=== PATIENT | male | born 1980 | race Two or more races ===

== ENCOUNTER 2020-04-19 20:57 | Inpatient (IN) | payer OTHER ==
[~2020-04-19] VITALS: Ht 160 cm; Wt 72.1 kg
[2020-04-19] MEDS ORDERED: CEFTRIAXONE 1,000 MG ONE (21:20)
[2020-04-19] MEDS ORDERED: CEFTRIAXONE PMX 1GM/50ML 50 ML IVPB ONE (21:30)
[2020-04-19] MEDS ORDERED: AZITHROMYCIN 500 MG in SODIUM CHLORIDE 0.9% 250 ML IVPB ONE (21:30)
[2020-04-19] MEDS ORDERED: SODIUM CHLORIDE 0.9% 1,000ML IVBOLUS ONE (21:30)
[2020-04-19] MEDS ORDERED: SODIUM CHLORIDE FLUSH 10ML SYR IVF ONE (21:30)
--- NOTE | 2020-04-19 21:47 | NUR ---
PT HERE FOR SOB, COUGH AND CHILLS SINCE March. PT PT HAS TESTED POSITIVE FOR COVID A WEEK AGO MIKEL. PT PLACED ON METALLOGRAPHER AND O2. VS STABLE AT THIS TIME. WILL CONTINUE TO MONITOR PT.
[2020-04-19 22:03] LABS: BASOPHILS % (AUTO) 0 % (0-1); EOSINOPHILS # (AUTO) 0.13 x10^3/uL (0-0.4); EOSINOPHILS % (AUTO) 2 % (1-7); LYMPHOCYTES # (AUTO) 0.66 x10^3/uL (1-3.4); LYMPHOCYTES % (AUTO) 10 % (22-44); MD NO; MEAN CORPUSCULAR HEMOGLOBIN 30.7 pg (27.5-34.5); MEAN CORPUSCULAR HGB CONC 33.8 g/dL (33.2-36.2); MEAN CORPUSCULAR VOLUME 90.8 fL (81-97); MEAN PLATELET VOLUME 7.7 fL (7.4-10.4); MONOCYTES % (AUTO) 6 % (2-9); NEUTROPHILS # (AUTO) 5.69 x10^3/uL (1.8-6.8); NEUTROPHILS % (AUTO) 83 % (42-75); PLATELET COUNT 528 x10^3/uL (130-400); RED BLOOD COUNT 4.51 x10^6/uL (4.38-5.82); RED CELL DISTRIBUTION WIDTH 14.5 % (9.4-14.8)
[2020-04-19 22:07] LABS: ALANINE AMINOTRANSFERASE 436 U/L (12-78); ALBUMIN 2.6 g/dL (3.4-5.0); ANION GAP 10 mmol/L (5-15); CALCIUM 8.3 mg/dL (8.5-10.1); CHLORIDE 103 mmol/L (98-107); CREATININE 1.04 mg/dL (0.7-1.3)
--- NOTE | 2020-04-19 22:10 | NUR ---
CT ROOM WILL BE READY AT 2300. WAITING FOR COVID CLEAN.
[2020-04-19 22:11] LABS: ALKALINE PHOSPHATASE 88 U/L (45-117); BILIRUBIN,TOTAL 1.1 mg/dL (0.2-1.0); TOTAL PROTEIN 7.8 g/dL (6.4-8.2); TROPONIN I < 0.015 ng/mL (0.000-0.045)
[2020-04-19] MEDS ORDERED: PHARMACY MAY ADJ FOR RENAL FX MC PRN (23:00)
[2020-04-19] MEDS ORDERED: SODIUM CHLORIDE 0.9% 1,000 ML IV SCH (23:05)
--- NOTE | 2020-04-19 23:14 | NUR ---
REPORT TO ARNIE ADAN
[2020-04-19] MEDS ORDERED: OMNIPAQUE 350 MG/ML, 100ML BOTTLE ONE (23:26)
[2020-04-19] MEDS ORDERED: HYDROcodone/APAP 5/325 TABLET PO PRN (23:30)
[2020-04-19] MEDS ORDERED: ONDANSETRON 2MG/ML, 2ML IVPush PRN (23:30)
[2020-04-19] MEDS ORDERED: ALBUTEROL HFA 90 MCG/SPRAY INH PRN (23:30)
[2020-04-19 23:43] VITALS: BP 134/56
[2020-04-20 02:42] VITALS: BP 116/82
[2020-04-20] MEDS: AZITHROMYCIN 500 MG in SODIUM CHLORIDE 0.9% 250 ML IV SCH (06:23)
[2020-04-20 06:32] LABS: BASOPHILS # (AUTO) 0.02 x10^3/uL (0-0.1); BASOPHILS % (AUTO) 0 % (0-1); EOSINOPHILS # (AUTO) 0.15 x10^3/uL (0-0.4); EOSINOPHILS % (AUTO) 3 % (1-7); LYMPHOCYTES # (AUTO) 0.65 x10^3/uL (1-3.4); LYMPHOCYTES % (AUTO) 14 % (22-44); MD NO; MEAN CORPUSCULAR HEMOGLOBIN 30.1 pg (27.5-34.5); MEAN CORPUSCULAR HGB CONC 33.1 g/dL (33.2-36.2); MEAN PLATELET VOLUME 7.4 fL (7.4-10.4); MONOCYTES # (AUTO) 0.34 x10^3/uL (0.2-0.8); MONOCYTES % (AUTO) 7 % (2-9); NEUTROPHILS # (AUTO) 3.64 x10^3/uL (1.8-6.8); NEUTROPHILS % (AUTO) 76 % (42-75); PLATELET COUNT 487 x10^3/uL (130-400); RED BLOOD COUNT 4.18 x10^6/uL (4.38-5.82); RED CELL DISTRIBUTION WIDTH 13.9 % (9.4-14.8)
[2020-04-20 06:38] LABS: ALANINE AMINOTRANSFERASE 351 U/L (12-78); ALBUMIN 2.3 g/dL (3.4-5.0); ANION GAP 7 mmol/L (5-15); CALCIUM 8.2 mg/dL (8.5-10.1); CHLORIDE 106 mmol/L (98-107); CREATININE 0.92 mg/dL (0.7-1.3)
[2020-04-20 06:42] LABS: D-DIMER 1.01 ug/mlFEU (0.00-0.52); INTERNATIONAL NORMALIZED RATIO 1.22 (0.93-1.1)
[2020-04-20 06:56] LABS: ALKALINE PHOSPHATASE 74 U/L (45-117); BILIRUBIN,TOTAL 0.8 mg/dL (0.2-1.0); CREATINE KINASE, TOTAL 94 U/L (39-308); TOTAL PROTEIN 7.1 g/dL (6.4-8.2)
[2020-04-20 08:58] VITALS: BP 116/81
[2020-04-20] MEDS ORDERED: ASCORBIC ACID 500 MG TABLET PO SCH (09:00)
[2020-04-20] MEDS ORDERED: DOXYCYCLINE 100 MG in DEXTROSE 5% 250 ML IV SCH (09:00)
[2020-04-20] MEDS: ZINC SULFATE 220 MG CAPSULE PO SCH (10:57)
[2020-04-20] MEDS: GUAIFENESIN ER 600 MG TABLET PO SCH ×2 (10:57→20:12)
[2020-04-20] MEDS: CEFTRIAXONE PMX 1GM/50ML 50 ML IVPB SCH (10:57)
[2020-04-20] MEDS: CHOLECALCIFEROL 400 UNITS TABLET PO SCH (10:57)
[2020-04-20] MEDS: ENOXAPARIN 40 MG/0.4 ML SQ SCH (10:58)
[2020-04-20 12:53] VITALS: BP 111/79
[2020-04-20] MEDS: ASCORBIC ACID 500 MG TABLET PO SCH ×2 (17:43→20:12)
[2020-04-20 20:06] VITALS: BP 117/69
[2020-04-20] MEDS: ACETAMINOPHEN 325 MG TABLET PO PRN (20:14)
[2020-04-21 02:15] VITALS: BP 118/86
[2020-04-21 05:49] LABS: BASOPHILS # (AUTO) 0.02 x10^3/uL (0-0.1); BASOPHILS % (AUTO) 0 % (0-1); EOSINOPHILS % (AUTO) 4 % (1-7); LYMPHOCYTES # (AUTO) 0.68 x10^3/uL (1-3.4); LYMPHOCYTES % (AUTO) 13 % (22-44); MD NO; MEAN CORPUSCULAR HEMOGLOBIN 30.4 pg (27.5-34.5); MEAN CORPUSCULAR HGB CONC 33.2 g/dL (33.2-36.2); MEAN CORPUSCULAR VOLUME 91.6 fL (81-97); MEAN PLATELET VOLUME 7.1 fL (7.4-10.4); MONOCYTES # (AUTO) 0.43 x10^3/uL (0.2-0.8); MONOCYTES % (AUTO) 8 % (2-9); NEUTROPHILS # (AUTO) 3.87 x10^3/uL (1.8-6.8); NEUTROPHILS % (AUTO) 74 % (42-75); PLATELET COUNT 487 x10^3/uL (130-400); RED BLOOD COUNT 3.95 x10^6/uL (4.38-5.82); RED CELL DISTRIBUTION WIDTH 14.4 % (9.4-14.8)
[2020-04-21 05:51] LABS: HCT (SEDRATE) 36.2 % (39.2-51.8)
[2020-04-21 05:56] LABS: ALANINE AMINOTRANSFERASE 302 U/L (12-78); ALBUMIN 2.2 g/dL (3.4-5.0); ANION GAP 8 mmol/L (5-15); CALCIUM 8.2 mg/dL (8.5-10.1); CHLORIDE 109 mmol/L (98-107); CREATININE 0.76 mg/dL (0.7-1.3)
[2020-04-21] MEDS: AZITHROMYCIN 500 MG in SODIUM CHLORIDE 0.9% 250 ML IV SCH (06:01)
[2020-04-21 06:03] LABS: ALKALINE PHOSPHATASE 67 U/L (45-117); BILIRUBIN,TOTAL 0.7 mg/dL (0.2-1.0); CREATINE KINASE, TOTAL 86 U/L (39-308); TOTAL PROTEIN 6.8 g/dL (6.4-8.2)
[2020-04-21 08:40] VITALS: BP 114/78
[2020-04-21] MEDS: GUAIFENESIN ER 600 MG TABLET PO SCH ×2 (08:40→20:33)
[2020-04-21] MEDS: CHOLECALCIFEROL 400 UNITS TABLET PO SCH (08:40)
[2020-04-21] MEDS: ZINC SULFATE 220 MG CAPSULE PO SCH (08:40)
[2020-04-21] MEDS: CEFTRIAXONE PMX 1GM/50ML 50 ML IVPB SCH (08:40)
[2020-04-21] MEDS: ASCORBIC ACID 500 MG TABLET PO SCH ×3 (08:41→20:33)
[2020-04-21 12:46] VITALS: BP 109/72
[2020-04-21] MEDS: ENOXAPARIN 40 MG/0.4 ML SQ SCH (13:15)
[2020-04-21] MEDS: SODIUM CHLORIDE 0.9% 1,000 ML IV SCH (13:16)
[2020-04-21] MEDS: BENZONATATE 100 MG CAPSULE PO SCH ×3 (13:23→23:59)
[2020-04-21 19:09] VITALS: BP 136/76
[2020-04-21] MEDS: ACETAMINOPHEN 325 MG TABLET PO PRN (20:42)
[2020-04-22 00:16] VITALS: BP 110/79
[2020-04-22 05:11] LABS: ALANINE AMINOTRANSFERASE 222 U/L (12-78); ALBUMIN 2.1 g/dL (3.4-5.0); ANION GAP 5 mmol/L (5-15); CALCIUM 8.2 mg/dL (8.5-10.1); CHLORIDE 109 mmol/L (98-107); CREATININE 0.86 mg/dL (0.7-1.3)
[2020-04-22 05:12] LABS: BASOPHILS # (AUTO) 0.02 x10^3/uL (0-0.1); BASOPHILS % (AUTO) 0 % (0-1); EOSINOPHILS % (AUTO) 4 % (1-7); LYMPHOCYTES # (AUTO) 0.87 x10^3/uL (1-3.4); LYMPHOCYTES % (AUTO) 17 % (22-44); MD NO; MEAN CORPUSCULAR HEMOGLOBIN 30.7 pg (27.5-34.5); MEAN CORPUSCULAR HGB CONC 33.3 g/dL (33.2-36.2); MEAN CORPUSCULAR VOLUME 92.4 fL (81-97); MEAN PLATELET VOLUME 6.9 fL (7.4-10.4); MONOCYTES # (AUTO) 0.49 x10^3/uL (0.2-0.8); MONOCYTES % (AUTO) 10 % (2-9); NEUTROPHILS # (AUTO) 3.43 x10^3/uL (1.8-6.8); NEUTROPHILS % (AUTO) 68 % (42-75); PLATELET COUNT 497 x10^3/uL (130-400); RED BLOOD COUNT 3.77 x10^6/uL (4.38-5.82); RED CELL DISTRIBUTION WIDTH 14.2 % (9.4-14.8)
[2020-04-22 05:24] LABS: ALKALINE PHOSPHATASE 61 U/L (45-117); BILIRUBIN,TOTAL 0.6 mg/dL (0.2-1.0); CREATINE KINASE, TOTAL 88 U/L (39-308); TOTAL PROTEIN 6.6 g/dL (6.4-8.2)
[2020-04-22] MEDS: AZITHROMYCIN 500 MG in SODIUM CHLORIDE 0.9% 250 ML IV SCH (06:18)
[2020-04-22] MEDS: BENZONATATE 100 MG CAPSULE PO SCH ×3 (06:20→20:41)
[2020-04-22] MEDS: ASCORBIC ACID 500 MG TABLET PO SCH ×3 (08:31→20:42)
[2020-04-22] MEDS: CHOLECALCIFEROL 400 UNITS TABLET PO SCH (08:31)
[2020-04-22] MEDS: CEFTRIAXONE PMX 1GM/50ML 50 ML IVPB SCH (08:32)
[2020-04-22] MEDS: ACETAMINOPHEN 325 MG TABLET PO PRN (08:32)
[2020-04-22] MEDS: ENOXAPARIN 40 MG/0.4 ML SQ SCH (08:32)
[2020-04-22] MEDS: ZINC SULFATE 220 MG CAPSULE PO SCH (08:32)
[2020-04-22] MEDS: SODIUM CHLORIDE 0.9% 1,000 ML IV SCH (08:32)
[2020-04-22] MEDS: GUAIFENESIN ER 600 MG TABLET PO SCH ×2 (08:32→20:41)
[2020-04-22 08:42] VITALS: BP 116/81
[2020-04-22 13:14] VITALS: BP 122/80
[2020-04-22 20:22] VITALS: BP 115/78
[2020-04-23 02:17] VITALS: BP 114/79
[2020-04-23] MEDS: SODIUM CHLORIDE 0.9% 1,000 ML IV SCH (02:43)
[2020-04-23 05:52] LABS: ALBUMIN 2.5 g/dL (3.4-5.0); ANION GAP 8 mmol/L (5-15); BASOPHILS # (AUTO) 0.02 x10^3/uL (0-0.1); BASOPHILS % (AUTO) 1 % (0-1); CALCIUM 8.6 mg/dL (8.5-10.1); CHLORIDE 110 mmol/L (98-107); EOSINOPHILS # (AUTO) 0.24 x10^3/uL (0-0.4); EOSINOPHILS % (AUTO) 5 % (1-7); LYMPHOCYTES # (AUTO) 1.17 x10^3/uL (1-3.4); LYMPHOCYTES % (AUTO) 24 % (22-44); MD NO; MEAN CORPUSCULAR HEMOGLOBIN 30.3 pg (27.5-34.5); MEAN CORPUSCULAR HGB CONC 33.2 g/dL (33.2-36.2); MEAN CORPUSCULAR VOLUME 91.3 fL (81-97); MEAN PLATELET VOLUME 7.1 fL (7.4-10.4); MONOCYTES # (AUTO) 0.48 x10^3/uL (0.2-0.8); MONOCYTES % (AUTO) 10 % (2-9); NEUTROPHILS # (AUTO) 2.88 x10^3/uL (1.8-6.8); NEUTROPHILS % (AUTO) 60 % (42-75); PLATELET COUNT 605 x10^3/uL (130-400); RED BLOOD COUNT 4.12 x10^6/uL (4.38-5.82); RED CELL DISTRIBUTION WIDTH 14.2 % (9.4-14.8)
[2020-04-23 06:02] LABS: ALANINE AMINOTRANSFERASE 229 U/L (12-78); ALKALINE PHOSPHATASE 59 U/L (45-117); BILIRUBIN,TOTAL 0.7 mg/dL (0.2-1.0); CREATININE 0.89 mg/dL (0.7-1.3); TOTAL PROTEIN 7.1 g/dL (6.4-8.2)
[2020-04-23] MEDS: AZITHROMYCIN 500 MG in SODIUM CHLORIDE 0.9% 250 ML IV SCH (06:18)
[2020-04-23 07:37] VITALS: BP 123/85
[2020-04-23] MEDS ORDERED: ASCO500T9 PO (08:54)
[2020-04-23] MEDS ORDERED: AZIT500T10 PO (08:54)
[2020-04-23] MEDS ORDERED: CHOL400T2 PO (08:54)
[2020-04-23] MEDS ORDERED: BENZ-17 PO (08:54)
[2020-04-23] MEDS ORDERED: ZINC220C7 PO (08:54)
[2020-04-23] MEDS ORDERED: AMOX1TAB61 PO (08:54)
[2020-04-23] MEDS ORDERED: GUAI600T31 PO (08:54)
[2020-04-23] MEDS ORDERED: ALBU18HF INH (08:54)
[2020-04-23] MEDS: ZINC SULFATE 220 MG CAPSULE PO SCH (10:05)
[2020-04-23] MEDS: CHOLECALCIFEROL 400 UNITS TABLET PO SCH (10:05)
[2020-04-23] MEDS: BENZONATATE 100 MG CAPSULE PO SCH (10:05)
[2020-04-23] MEDS: ASCORBIC ACID 500 MG TABLET PO SCH (10:05)
[2020-04-23] MEDS: GUAIFENESIN ER 600 MG TABLET PO SCH (10:05)
[2020-04-23] MEDS: ENOXAPARIN 40 MG/0.4 ML SQ SCH (10:06)
[2020-04-23] MEDS: CEFTRIAXONE PMX 1GM/50ML 50 ML IVPB SCH (10:06)
== END 2020-04-23 11:54 | disposition home or self-care (01) | DRG 177 ==
LOC: ED 22:41 → EDIP 23:48 → 4NE 23:51
PROVIDERS: ADMIT Internal Medicine; ATTEND Hospitalist
DX: U07.1 COVID-19 (principal); J96.01 Acute respiratory failure with hypoxia; J12.89 Other viral pneumonia
CPT/HCPCS: 36415; 71045; 71275; 76705; 80053; 80074; 82550; 82728; 83615; 83880; 84145; 84484; 85025; 85379; 85384; 85610; 85651; 86140; 87040; 87806; 93005; 96365; 96368; 99291; G0378; J0456; J0696; J1650; J2405; Q9967; G0475; J7030; J7050